=== PATIENT | male | born 1955 | race Caucasian/White ===

== ENCOUNTER 2017-11-23 12:48 | Outpatient (REF) | payer OTHER, SELFPAY ==
--- NOTE | 2017-11-23 12:00 | SKI_PTH ---
PATIENT: Deangelo Nunez LOC: [facility] U#:[id number] AGE/SX: 62/M ROOM: RE11/23/[address]: Radha Negron : 1955 BED: DIS: 11/23/2017 SPEC #: [id number] RECD: 11/24/17 12:40 STATUS: EBENEZER REPuneet #: [id number] VALENTINA: 11/23/17 12:[address]: aRdha Negron DEPT: Surgical Specimen RECD BY: Emma Padilla Tissues: 1 - SKIN BIOPSY(SHAVE/PUNCH) Procedures: SKIN LEVEL 4 Comments: [id number]
== END 2017-11-23 13:08 ==
LOC: NCHCN 12:48
PROVIDERS: PCP Family Medicine; Visit Provider Family Medicine
DX: C44.519 Basal cell carcinoma of skin of other part of trunk (principal)
CPT/HCPCS: 88305

== ENCOUNTER 2017-12-01 00:59 | Outpatient (CLI) | payer OTHER, SELFPAY ==
[2017-12-01 10:46] LABS: CREATININE 1.07 mg/dL (0.70-1.30)
== END 2017-12-01 01:19 ==
PROVIDERS: PCP Family Medicine; Visit Provider Family Medicine
DX: R22.2 Localized swelling, mass and lump, trunk (principal); Z13.89 Encounter for screening for other disorder
CPT/HCPCS: 36415; 82565

== ENCOUNTER 2017-12-05 00:33 | Outpatient (CLI) | payer OTHER, SELFPAY ==
--- NOTE | 2017-12-05 10:09 | DI.CT_ITS ---
SYMPTOM/DIAGNOSIS: MEDIASTINAL MASS, R22.[address]: 12/05 CT examination of the chest was performed with intravenous infusion of 100 cc Omnipaque 350. The examination is compared with previous cervical CT of 08/12/2016 which showed a lobulated fluid attenuation superior mediastinal mass. This finding is again present on the current examination with no significant interval change in appearance of the fluid attenuation, well circumscribed mass. Maximal diameter is about 33 mm in oblique plane on coronal images and largest transaxial measurement is about 24 mm. No additional mediastinal mass seen. No mediastinal or hilar adenopathy. Tracheobronchial tree appears intact. No vascular abnormality seen. No pleural effusion. Lungs are clear. Images obtained through the upper abdomen show unremarkable appearance of visualized portions of the liver, spleen, kidneys, adrenals and pancreas. CONCLUSION: Stable fluid attenuation presumably benign superior mediastinal mass. No change from 08/12/16.
[2017-12-05] MEDS: Omnipaque 350 MG/ML 100 ML BTL IJ (10:36)
== END 2017-12-05 00:53 ==
PROVIDERS: PCP Family Medicine; Visit Provider Family Medicine
DX: R22.2 Localized swelling, mass and lump, trunk (principal); J98.59 Other diseases of mediastinum, not elsewhere classified
CPT/HCPCS: 71260; J3490

== ENCOUNTER 2020-01-16 17:14 | Outpatient (REF) | payer OTHER, SELFPAY ==
[2020-01-21 17:38] LABS: Patient Race White; SARS-CoV-2 RNA Undetected (Undetected); SARS-CoV-2 Specimen Source Nasal
== END 2020-01-16 17:34 ==
LOC: NCHCN 17:14
PROVIDERS: PCP Family Medicine; Visit Provider Nurse Practitioner Family
DX: Z20.828 Contact with and (suspected) exposure to other viral communicable diseases (principal)
CPT/HCPCS: U0003

== ENCOUNTER 2020-01-29 10:46 | Outpatient (REF) | payer OTHER, SELFPAY ==
[2020-02-02 06:14] LABS: Patient Race White; SARS-CoV-2 RNA Undetected (Undetected); SARS-CoV-2 Specimen Source Nasal
== END 2020-01-29 11:06 ==
LOC: NCHCN 10:46
PROVIDERS: PCP Family Medicine; Visit Provider Nurse Practitioner Family
DX: Z11.59 Encounter for screening for other viral diseases (principal)
CPT/HCPCS: U0003

== ENCOUNTER 2020-10-14 18:54 | Outpatient (REF) | payer OTHER, SELFPAY ==
[2020-10-16 15:40] LABS: COVID-19 RT-PCR UVMMC Result Negative (Negative)
== END 2020-10-14 18:55 | disposition home or self-care (01) ==
LOC: NCHCN 18:54
PROVIDERS: PCP Family Medicine; Visit Provider Physician Assistant Medical
DX: Z20.822 Contact with and (suspected) exposure to COVID-19 (principal)
CPT/HCPCS: U0003

== ENCOUNTER 2020-10-16 08:20 | Outpatient (REF) | payer OTHER, SELFPAY ==
[2020-10-16 15:20] LABS: ALT 18 U/L (16-63); AST 16 U/L (15-37); Albumin 4.1 g/dL (3.4-5.0); Alkaline Phosphatase 52 U/L (46-116); Anion Gap 7.8 mmol/L (3-11); BUN 21 mg/dL (7-18); Bilirubin, Total 0.5 mg/dL (0.2-1.0); CO2 27.2 mmol/L (21.0-32.0); CREATININE 1.1 mg/dL (0.70-1.30); Calculated LDL 136 mg/dL (<100); Chloride 108 mmol/L (98-107); Cholesterol 192 mg/dL (<200); Glucose 92 mg/dL (74-106); HDL Cholesterol 48 mg/dL (40-60); Potassium 4.2 mmol/L (3.5-5.1); Sodium 143 mmol/L (136-145); Total Protein 6.5 g/dL (6.4-8.2); Triglyceride 43 mg/dL (<150)
[2020-10-16 21:58] LABS: PSA, Screening 2.4 ng/mL (0.0-4.5)
== END 2020-10-16 08:21 | disposition home or self-care (01) ==
LOC: NCHCN 08:20
PROVIDERS: PCP Family Medicine; Visit Provider Family Medicine
DX: Z00.00 Encounter for general adult medical examination without abnormal findings (principal); Z82.49 Family history of ischemic heart disease and other diseases of the circulatory system; N40.1 Benign prostatic hyperplasia with lower urinary tract symptoms; Z12.5 Encounter for screening for malignant neoplasm of prostate; Z13.220 Encounter for screening for lipoid disorders
CPT/HCPCS: 80053; 80061; 84153

== ENCOUNTER 2021-05-31 13:21 | Outpatient (REF) | payer OTHER, SELFPAY ==
[2021-05-31 16:53] LABS: Absolute Basophil Count 0.05 10^3/uL (0.0-0.2); Absolute Eosinophil Count 0.07 10^3/uL (0.0-0.7); Absolute Lymphocyte Count 0.81 10^3/uL (1.2-3.4); Absolute Monocyte Count 0.28 10^3/uL (0.1-0.8); Absolute Neutrophil Count 3.34 10^3/uL (1.2-6.7); Basophils % 1.1; Eosinophils % 1.5; HCT 40.3 % (40.0-50.0); HGB 13.1 g/dL (13.5-17.5); Lymphocytes % 17.8; MCH 29.6 pg (27.0-33.0); MCHC 32.5 % (32.0-36.0); MCV 91.2 fL (80-95); MPV 11.2 fL (8.0-11.0); Monocytes % 6.2; Neutrophils % 73.4; Nucleated RBC 0 %; Platelet Count 223 10^3/uL (130-400); RBC 4.42 10^6/uL (4.36-5.78); RDW 12.5 % (11.8-14.1); RDW-SD 41.9 fL; WBC 4.55 10^3/uL (4.4-10.8)
[2021-05-31 17:33] LABS: ALT 24 U/L (16-63); AST 20 U/L (15-37); Albumin 4.4 g/dL (3.4-5.0); Alkaline Phosphatase 63 U/L (46-116); Anion Gap 7.7 mmol/L (3-11); BUN 19 mg/dL (7-18); Bilirubin, Total 0.6 mg/dL (0.2-1.0); CO2 27.3 mmol/L (21.0-32.0); Calcium 9.1 mg/dL (8.5-10.1); Chloride 106 mmol/L (98-107); Glucose 85 mg/dL (74-106); Potassium 4.3 mmol/L (3.5-5.1); Sodium 141 mmol/L (136-145); TSH (W/Ref FT4) 2.63 uIU/mL (0.36-3.74)
[2021-06-01 09:46] LABS: Hepatitis C Ab w Rflx HCV PCR Negative (Negative)
[2021-06-01 10:01] LABS: HIV-1/2 Ag & Ab Screen Negative (Negative)
== END 2021-05-31 13:22 | disposition home or self-care (01) ==
LOC: NCHCN 13:21
PROVIDERS: PCP Family Medicine; Visit Provider Family Medicine
DX: R00.2 Palpitations (principal); R06.09 Other forms of dyspnea; Z11.4 Encounter for screening for human immunodeficiency virus [HIV]; Z11.59 Encounter for screening for other viral diseases
CPT/HCPCS: 80053; 86803; 87389; 84443; 85025

== ENCOUNTER → 2021-07-06 00:21 | Outpatient (CLI) | payer OTHER, SELFPAY ==
--- NOTE | 2021-07-06 09:15 | DI.NM_ITS ---
APPROVED REPORT Exam: Exercise Treadmill Patient Location: Out-Patient Room/Bed: Stress Nurse: Beatriz Hoover RN Ordering Provider:SATISH RAMIREZ, Contact Number: [phone] BMI: 23.08 Baseline Rhythm: Sinus Bradycardia Comment: 1DHB Indications: Dyspnea on exertion Medical History Medical History: Varicose veins, palpitations, EVANS Cardiac Medications: Nitroglycerin SL Allergies: NKA Cardiac Risk Factors: Family hx Previous Cardiac Procedures: None Pretest Chest Pain Characteristics: None Exercise History: Physically active Physical Disabilities: None Lung Sounds: Clear to auscultation, Clear to auscultation Heart Sounds: Regular Stress Test Details Test: Exercise stress testing was performed using a Harshil protocol. Nuclear Acquisition: Rest Tc-99m/Stress Tc-99m 1 day Rest Isotope: Tc-99m Sestamibi. Dose: 9.6 Date: 07/06/2021 Injection Time: 0930 Stress Isotope: Tc-99m Sestamibi. Dose: 30.0 Date: 07/06/2021 Injection Time: 1129 HR Resting HR Supine: 59 bpm Max Heart Rate (APMHR): 157.720568 bpm Resting HR Standin bpm Target HR (85% APMHR): 133.435382 bpm Max HR Achieved: 158 bpm % of APMHR: 100.64 Recovery HR: 85 bpm HR response to stress: Normal HR response to stress BP Resting BP Supine: 124/72 mmHg Resting BP Standin/70 mmHg Max BP: 152/64 mmHg Recovery BP: 128/60 mmHg BP response to stress: Normal blood pressure response to stress. ECG Resting ECG: Sinus Bradycardia, 1DHB Ectopy: None Stress ECG: Sinus Tachycardia, 1DHB ST Change: No significant ST segment changes noted Arrhythmia: Frequent PVCs toward end of exercise, couplet Recovery ECG: Sinus Rhythm, 1DHB Recovery ST Change: No significant ST segment changes noted Recovery Arrhythmia: Rare PVC Clinical Reason for Termination: Stopped by stress RN due to safety on treadmill Stress Symptoms: General Fatigue, Dyspnea Exercise duration: 8 min58 sec Highest Stage Reached: Stage 3: 3.4 mph at 14% grade. Exercise capacity: 10.16 METs Srivastava Treadmill Score: 8.1 Rate Pressure Product: [id number] Stress ECG Conclusion 1. The resting electrocardiogram showed first-degree AV block 2. Patient exercised on the Harshil protocol completed a workload of 10.16 METS 3. Normal heart rate and blood pressure response to exercise. The patient achieved 100% of predicted heart rate for age 4. The electrocardiographic portion of the test showed no evidence of myocardial ischemia 5. Rare PVCs were seen 6. See MPI report Srivastava Treadmill Score is 8.1 which is Low risk. Stress Test Summary STAGE Time (mins) Speed (mph) Grade (%) HR BP SYMPTOMS METS Supine 59 124/72 Standing 78 106/70 SpO2 98% 1 3 1.7 10 99 138/63 SpO2 94% 4.6 2 6 2.5 12 124 148/68 Moderate SOB, SpO2 92% 7 3 9 3.4 14 158 Moderate SOB, SpO2 88% 10.2 1 min recovery 140 152/64 SOB resolved, SpO2 97% 3 min recovery 94 152/60 SpO2 98% 6 min recovery 85 128/60 SpO2 98% MPI Conclusion Myocardial perfusion is normal. There is no ischemia or evidence of prior infarction EF 76%, normal wall motion Radiologist Interpretation Radiologist agrees with Hot Saw Helper's Interpretation. Radiologist Interpretation by: Marquis Bloom MD Interpretation Date/Time: 07/06/2021 15:48:43
== END ==
PROVIDERS: PCP Family Medicine; Visit Provider Family Medicine
DX: R06.09 Other forms of dyspnea (principal)
CPT/HCPCS: 78452; 93017

== ENCOUNTER 2022-07-26 15:03 | Outpatient (REF) | payer SELFPAY ==
[2022-07-26 17:00] LABS: ALT 20 U/L (16-63); AST 17 U/L (15-37); Albumin 4.3 g/dL (3.4-5.0); Alkaline Phosphatase 60 U/L (46-116); Anion Gap 6.7 mmol/L (3-11); BUN 19 mg/dL (7-18); Bilirubin, Total 0.6 mg/dL (0.2-1.0); CO2 29.3 mmol/L (21.0-32.0); CREATININE 1.1 mg/dL (0.70-1.30); Calcium 9.1 mg/dL (8.5-10.1); Calculated LDL 140 mg/dL (<100); Chloride 105 mmol/L (98-107); Cholesterol 212 mg/dL (<200); Estimated GFR 74.96 (mL/min/1.73m2); Glucose 93 mg/dL (74-106); HDL Cholesterol 57 mg/dL (40-60); Potassium 4.1 mmol/L (3.5-5.1); Sodium 141 mmol/L (136-145); Triglyceride 78 mg/dL (<150)
[2022-07-27 21:51] LABS: PSA, Screening 3.8 ng/mL (<=4.5)
== END 2022-07-26 15:04 | disposition home or self-care (01) ==
LOC: NCHCN 15:03
PROVIDERS: PCP Family Medicine; Visit Provider Family Medicine
DX: Z00.00 Encounter for general adult medical examination without abnormal findings (principal); M79.18 Myalgia, other site; N40.1 Benign prostatic hyperplasia with lower urinary tract symptoms; Z12.5 Encounter for screening for malignant neoplasm of prostate; Z13.220 Encounter for screening for lipoid disorders
CPT/HCPCS: 80053; 80061; 84153

== ENCOUNTER 2023-09-05 22:23 | Outpatient (REF) | payer BC, SELFPAY ==
[2023-09-05 21:30] LABS: Abs Immature Grans 0.01 10^3/uL (0.0-0.06); Absolute Basophil Count 0.03 10^3/uL (0.0-0.2); Absolute Eosinophil Count 0.03 10^3/uL (0.0-0.7); Absolute Lymphocyte Count 0.76 10^3/uL (1.2-3.4); Absolute Monocyte Count 0.26 10^3/uL (0.1-0.8); Absolute Neutrophil Count 4.89 10^3/uL (1.2-6.7); Basophils % 0.5 %; ESR < 1 mm/hr (0-20); Eosinophils % 0.5 %; HCT 38.4 % (40.0-50.0); HGB 12.9 g/dL (13.5-17.5); Immature Grans % 0.2 %; Lymphocytes % 12.7 %; MCH 30.1 pg (27.0-33.0); MCHC 33.6 % (32.0-36.0); MCV 90 fL (80-95); MPV 11.4 fL (8.0-11.0); Monocytes % 4.3 %; Neutrophils % 81.8 %; Platelet Count 233 10^3/uL (130-400); RBC 4.28 10^6/uL (4.36-5.78); RDW 12.7 % (11.8-14.1); RDW-SD 41.2 fL; WBC 5.98 10^3/uL (4.4-10.8)
[2023-09-05 21:48] LABS: ALT 26 U/L (16-63); AST 17 U/L (15-37); Albumin 4.2 g/dL (3.4-5.0); Alkaline Phosphatase 67 U/L (46-116); Anion Gap 8.3 mmol/L (3-11); BUN 18 mg/dL (7-18); Bilirubin, Total 0.43 mg/dL (0.2-1.0); CO2 29.7 mmol/L (21.0-32.0); CREATININE 1.4 mg/dL (0.70-1.30); Calcium 9.1 mg/dL (8.5-10.1); Chloride 106 mmol/L (98-107); Estimated GFR 55.43 (mL/min/1.73m2); Glucose 102 mg/dL (74-106); Potassium 4.6 mmol/L (3.5-5.1); Sodium 144 mmol/L (136-145); Total Protein 6.7 g/dL (6.4-8.2)
== END 2023-09-05 22:24 | disposition home or self-care (01) ==
LOC: NCHCN 22:23
PROVIDERS: PCP Family Medicine; Visit Provider Family Medicine
DX: R19.7 Diarrhea, unspecified (principal); E78.5 Hyperlipidemia, unspecified; R23.3 Spontaneous ecchymoses; G47.62 Sleep related leg cramps; N40.1 Benign prostatic hyperplasia with lower urinary tract symptoms; Z12.5 Encounter for screening for malignant neoplasm of prostate; M79.18 Myalgia, other site
CPT/HCPCS: 80053; 84153; 85652; 83735; 85025

== ENCOUNTER 2023-09-06 15:44 | Outpatient (REF) | payer BC, SELFPAY | END 2023-09-06 15:45 | disposition home or self-care (01) | LOC: NCHCN 15:44 | PROVIDERS: PCP Family Medicine; Visit Provider Family Medicine | DX: R19.7 Diarrhea, unspecified (principal) | CPT/HCPCS: 87329; 83630; 87177 ==

== ENCOUNTER 2024-03-18 18:49 | Outpatient (REF) | payer OTHER, SELFPAY ==
[2024-03-18 21:02] LABS: Abs Immature Grans 0.01 10^3/uL (0.0-0.06); Absolute Basophil Count 0.03 10^3/uL (0.0-0.2); Absolute Eosinophil Count 0.04 10^3/uL (0.0-0.7); Absolute Lymphocyte Count 0.98 10^3/uL (1.2-3.4); Absolute Monocyte Count 0.39 10^3/uL (0.1-0.8); Absolute Neutrophil Count 3.79 10^3/uL (1.2-6.7); Basophils % 0.6 %; Eosinophils % 0.8 %; HCT 38.7 % (40.0-50.0); HGB 12.6 g/dL (13.5-17.5); Immature Grans % 0.2 %; Lymphocytes % 18.7 %; MCHC 32.6 % (32.0-36.0); MCV 92 fL (80-95); MPV 11.1 fL (8.0-11.0); Monocytes % 7.4 %; Neutrophils % 72.3 %; Platelet Count 209 10^3/uL (130-400); RDW 12.5 % (11.8-14.1); WBC 5.24 10^3/uL (4.4-10.8)
[2024-03-18 21:18] LABS: ALT 26 U/L (16-63); AST 18 U/L (15-37); Albumin 3.8 g/dL (3.4-5.0); Alkaline Phosphatase 70 U/L (46-116); Anion Gap 7.4 mmol/L (3-11); BUN 17 mg/dL (7-18); Bilirubin, Total 0.24 mg/dL (0.2-1.0); CO2 28.6 mmol/L (21.0-32.0); CREATININE 1.1 mg/dL (0.70-1.30); Calcium 8.4 mg/dL (8.5-10.1); Chloride 109 mmol/L (98-107); Estimated GFR 74.04 (mL/min/1.73m2); Glucose 98 mg/dL (74-106); Magnesium 1.8 mg/dL (1.8-2.4); Potassium 4.4 mmol/L (3.5-5.1); Sodium 145 mmol/L (136-145); TSH (W/Ref FT4) 2.39 uIU/mL (0.36-3.74); Total Protein 6.3 g/dL (6.4-8.2)
== END 2024-03-18 18:50 | disposition home or self-care (01) ==
LOC: NCHCN 18:49
PROVIDERS: PCP Family Medicine; Visit Provider Family Medicine
DX: R42 Dizziness and giddiness (principal); R00.2 Palpitations
CPT/HCPCS: 80053; 83735; 84443; 85025

== ENCOUNTER 2024-03-20 11:26 | Outpatient (REF) | payer OTHER, SELFPAY ==
[2024-03-22 14:19] LABS: Cryptosporidium, F Negative (Negative); Giardia Ag, F Negative (Negative)
== END 2024-03-20 11:27 | disposition home or self-care (01) ==
LOC: NCHCN 11:26
PROVIDERS: PCP Family Medicine; Visit Provider Family Medicine
DX: R19.7 Diarrhea, unspecified (principal)
CPT/HCPCS: 87328; 87329; 83630; 87177

== ENCOUNTER 2024-04-09 10:44 | Outpatient (CLI) | payer OTHER, SELFPAY ==
[2024-04-09 16:38] LABS: Iron 61 ug/dL (65-175); Total Iron Binding Capacity 230 ug/dL (250-450); Transferrin Sat 27 % (20-55)
[2024-04-09 17:04] LABS: Ferritin 84 ng/mL (26-388); Folate 19.6 ng/mL (8.6-20.0); Vitamin B12 320 pg/mL (193-986)
[2024-04-11 11:46] LABS: Albumin 70.9 % (55.8-66.1); Albumin g/dL 4.5 g/dL (3.6-5.2); Total Protein 6.3 g/dL (6.3-8.2)
== END 2024-04-09 10:45 | disposition home or self-care (01) ==
LOC: LBO 10:44
PROVIDERS: Nurse Practitioner Gerontology; PCP Family Medicine; Visit Provider Family Medicine
DX: Z80.42 Family history of malignant neoplasm of prostate (principal); R97.20 Elevated prostate specific antigen [PSA]; N40.1 Benign prostatic hyperplasia with lower urinary tract symptoms; N13.8 Other obstructive and reflux uropathy
CPT/HCPCS: 36415; 82607; 82728; 82746; 83540; 83550; 84153; 84165

== ENCOUNTER 2024-05-06 13:50 | Outpatient (CLI) | payer OTHER, SELFPAY | END 2024-05-06 13:51 | disposition home or self-care (01) | LOC: CARDOPNVT 13:50 | PROVIDERS: PCP Family Medicine; Visit Provider Family Medicine | DX: R00.2 Palpitations (principal) | CPT/HCPCS: 93246 ==

== ENCOUNTER 2024-05-24 08:59 | Outpatient (CLI) | payer OTHER, SELFPAY ==
--- NOTE | 2024-05-24 12:21 | W.CARDEVENT ---
Date of service: 05/24/24 Time of Service: 12:21 Cardiac Event Recorder Referring Provider:: Tamir Causey Indications:: Palpitations Cardiac Event Note: This is a cardiac event monitor. Patient was monitored for 6 days and 17 hours Rhythm throughout was sinus with an average heart rate of 65. Minimum was 41, maximum 137 There are moderately frequent isolated ventricular ectopic beats, which comprised 14% of total. There were several 3-4 beat runs of nonsustained ventricular tachycardia. There were rare atrial premature beats. There was no atrial fibrillation, no high-grade AV block, no pauses greater than 3 seconds. No symptoms reported
== END 2024-05-24 09:00 | disposition home or self-care (01) ==
LOC: CARDOPNVT 08:59
PROVIDERS: PCP Family Medicine; Visit Provider Internal Medicine Cardiovascular Disease
DX: R00.2 Palpitations (principal)
CPT/HCPCS: 93248; 93246